=== PATIENT | male | born 1985 | race Caucasian/White ===

== ENCOUNTER 2016-11-11 18:08 | Emergency (ER) | payer MEDICAID ==
[~2016-11-11] VITALS: Ht 175.3 cm; Wt 60.3 kg
--- NOTE | 2016-11-11 18:08 | NUR ---
Patient SENTHIL [place] [employer] to be evaluated for pre-booking, transferred to [facility]. RN evaluating patient in [facility].
[2016-11-11 18:10] VITALS: BP 173/92
--- NOTE | 2016-11-11 18:24 | NUR ---
Dr. Lara evaluating patient as fast track in [facility].
--- NOTE | 2016-11-11 18:41 | NUR ---
Patient discharged with v/s stable. Written and verbal after care instructions given and explained. Patient verbalized understanding. Police with in custody. All questions addressed prior to discharge. Advised to follow up with PMD.
[2016-11-11 18:47] VITALS: BP 152/79
== END 2016-11-11 18:41 ==
LOC: MED 18:08
DX: Z02.89 Encounter for other administrative examinations (principal)
CPT/HCPCS: 99283